=== PATIENT | male | born 1975 | race Caucasian/White ===

== ENCOUNTER 2017-05-07 09:19 | Day surgery (SDC) | payer OTHER ==
[~2017-05-07 09:19] MED LIST: CEFAZOLIN 1 GM INJ; CEFAZOLIN 2 GM/50 ML (PMX) 50 ML IVPB; SOD CHLORIDE 0.9% 1,000 ML IV
[2017-05-07] MEDS ORDERED: FENTAnyl 50 MCG/ML VIAL (11:18)
[2017-05-07] MEDS ORDERED: MIDAZOLAM 1 MG/ML 2 ML INJ (11:18)
[2017-05-07] MEDS ORDERED: PROPOFOL 0 ML (11:20)
[2017-05-07] MEDS ORDERED: METOCLOPRAMIDE 10 MG INJ (11:20)
[2017-05-07] MEDS ORDERED: ONDANSETRON 4 MG INJ (11:21)
[2017-05-07] MEDS ORDERED: LIDOCAINE 1% (MDV) 20 ML INJ (11:21)
[2017-05-07] MEDS: BUPIVACAINE 0.25% (MPF) 30 ML INJ (12:25)
[2017-05-07] MEDS ORDERED: ACETAMINOPHEN 1000MG/100ML IV 100 ML (12:50)
[2017-05-07] MEDS ORDERED: PROPOFOL 20 ML ×2 (12:53)
[2017-05-07] MEDS ORDERED: HYDROmorphONE (0.2 MG/ML) 10ML SYG IV ×2 (13:00)
[2017-05-07] MEDS ORDERED: METOCLOPRAMIDE 10 MG INJ IV (13:00)
[2017-05-07] MEDS ORDERED: ONDANSETRON 4 MG INJ IV (13:00)
[2017-05-07] MEDS ORDERED: FENTAnyl 50 MCG/ML VIAL IV ×2 (13:00)
[2017-05-07] MEDS: HYDROCODONE/APAP (5/325) TAB PO (13:26)
== END 2017-05-07 15:50 | disposition home or self-care (01) ==
LOC: SDS 09:19
DX: K40.90 Unilateral inguinal hernia, without obstruction or gangrene, not specified as recurrent (principal)
CPT/HCPCS: 49507